=== PATIENT | male | born 1995 | race Asian ===

== ENCOUNTER 2024-06-29 02:52 | Emergency (ER) | payer OTHER ==
[~2024-06-29] VITALS: Ht 170.2 cm; Wt 65.9 kg
[2024-06-29 03:20] VITALS: BP 122/70; PULSE 60; RESP 18; TEMP 97.5; O2SAT 98
[2024-06-29] MEDS ORDERED: ONDANSETRON HCL 4 MG/2 ML VIAL IVP ONE (03:30)
[2024-06-29] MEDS ORDERED: SODIUM CHLORIDE 0.9% 1,000 ML IV ONE (03:30)
== END 2024-06-29 05:03 | disposition left against medical advice (07) ==
LOC: EMS 02:52
DX: F10.90 Alcohol use, unspecified, uncomplicated (principal); Z53.21 Procedure and treatment not carried out due to patient leaving prior to being seen by health care provider; Y90.9 Presence of alcohol in blood, level not specified